=== PATIENT | female | born 1960 | race Asian ===

== ENCOUNTER 2023-12-28 02:35 | Emergency (ER) | payer MEDICAID ==
[~2023-12-28] VITALS: Ht 154.9 cm; Wt 72.1 kg
[2023-12-28 02:40] VITALS: TEMP 98.3
[2023-12-28 03:22] LABS: BASOPHILS # (AUTO) 0.1 X10'3 (0-0.2); BASOPHILS % (AUTO) 0.6 % (0-1); EOSINOPHILS # (AUTO) 0.1 X10'3 (0-0.9); EOSINOPHILS % (AUTO) 0.5 % (0-6); HEMATOCRIT 42.1 % (35.0-45.0); HEMOGLOBIN 14.2 g/dl (12.0-16.0); LYMPHOCYTES # (AUTO) 2.3 X10'3 (1.1-4.8); LYMPHOCYTES % (AUTO) 20.2 % (21-51); MEAN CORPUSCULAR HEMOGLOBIN 27.6 PG (27.0-31.0); MEAN CORPUSCULAR HGB CONC 33.8 g/dL (33.0-36.5); MEAN CORPUSCULAR VOLUME 81.8 FL (78-98); MONOCYTES # (AUTO) 0.8 X10'3 (0-0.9); MONOCYTES % (AUTO) 7.5 % (2-12); NEUTROPHILS # (AUTO) 8.1 X10'3 (1.8-7.7); NEUTROPHILS % (AUTO) 71.2 % (42-75); PLATELET COUNT 261 X10'3 (140-440); RED BLOOD COUNT 5.15 X10'6 (4.20-5.60); RED CELL DISTRIBUTION WIDTH 13.3 % (11.5-14.5); WHITE BLOOD COUNT 11.3 X10'3 (4.5-11.0)
[2023-12-28 03:41] LABS: ALANINE AMINOTRANSFERASE 42 U/L (12-78); ALBUMIN 3.7 G/DL (3.4-5.0); ALKALINE PHOSPHATASE 80 IU/L (46-116); ANION GAP 10 (8-16); ASPARTATE AMINO TRANSFERASE 16 U/L (10-37); BLOOD UREA NITROGEN 9 MG/DL (7-18); BUN/CREATININE RATIO 12.7 (10.0-20.0); CALCIUM 8.9 MG/DL (8.5-10.1); CHLORIDE 101 MMOL/L (99-107); CREATININE 0.71 MG/DL (0.40-0.90); GLUCOSE 159 MG/DL (70-104); LIPASE 24 U/L (16-77); SODIUM 140 MMOL/L (135-145); TOTAL CARBON DIOXIDE 28.8 MMOL/L (24-32); TOTAL PROTEIN 7.4 G/DL (6.4-8.2); eCRCL 60 ML/MIN; eGFR 83 ML/MIN
[2023-12-28 03:44] LABS: POTASSIUM 2.6 MMOL/L (3.5-5.1)
[2023-12-28 03:46] VITALS: RESP 16
[2023-12-28 04:30] VITALS: BP 140/81; PULSE 75; O2SAT 91
[2023-12-28] MEDS: potassium Cl 20 mEq SR tablet PO STA (04:42)
[2023-12-28] MEDS ORDERED: CIPR-202 PO (04:47)
[2023-12-28] MEDS ORDERED: DICY20TA17 PO (04:47)
[2023-12-28] MEDS ORDERED: POTA-207 PO (04:49)
[2023-12-28] MEDS ORDERED: LOPE2CAP PO (04:49)
[2023-12-28] MEDS: ciprofloxacin 250mg tablet PO ONE (05:14)
== END 2023-12-28 05:18 | disposition home or self-care (01) ==
LOC: ER 02:36
DX: K52.89 Other specified noninfective gastroenteritis and colitis (principal)
CPT/HCPCS: 36415; 74176; 80053; 83690; 84145; 85025; 99285